=== PATIENT | male | born 1990 | race Caucasian/White ===

== ENCOUNTER 2018-09-26 15:19 | Emergency (ER) | payer OTHER ==
[~2018-09-26] VITALS: Ht 182.9 cm; Wt 97.7 kg
[2018-09-26] MEDS ORDERED: LIDO5DIS41 TOP (15:24)
[2018-09-26] MEDS ORDERED: ADVI100T PO (15:24)
[2018-09-26 17:19] VITALS: BP 165/93
[2018-09-26] MEDS ORDERED: CYCLOBENZAPRINE 10 MG TAB PO ONE (17:30)
[2018-09-26] MEDS ORDERED: NAPR-837 PO (17:31)
[2018-09-26] MEDS ORDERED: CYCL10TA PO (17:31)
--- NOTE | 2018-09-29 12:16 | REP ---
CT of the lumbar spine without IV contrast: Vertebral body heights, interspacing alignment are normal. The facets are normally aligned. There are no vertebral body compression deformities. There are no posterior element fractures. No focal disc protrusions are identified. The facet articulations are unremarkable. There is no spondylolysis or spondylolisthesis. Impression: Negative CT study. The of lumbar spine. Electronically Signed by Saúl Oropeza MD 09/26/2018 04:51 P
== END 2018-09-26 17:48 | disposition home or self-care (01) ==
LOC: M ED 15:19
DX: M54.5 Low back pain (principal); M62.838 Other muscle spasm; Z79.899 Other long term (current) drug therapy; Z88.2 Allergy status to sulfonamides

== ENCOUNTER → 2020-02-26 | Outpatient (CLI) | payer SELFPAY ==
[~2020-02-26] MED LIST: ADVI100T PO; CYCL-707 PO; LIDO5DIS41 TOP; NAPR-837 PO
== END ==
LOC: M LABSMTC 08:46
PROVIDERS: ATTEND Pediatrics
DX: Z20.828 Contact with and (suspected) exposure to other viral communicable diseases (principal)

== ENCOUNTER 2020-10-22 06:57 | Day surgery (SDC) | payer OTHER ==
[~2020-10-22] VITALS: Ht 182.9 cm; Wt 117.0 kg
[~2020-10-22 06:57] MED LIST changes: +CETI-36 PO; +LIDOCAINE 1% SDV 5ML VIAL As Ordered ONE; +LR 1,000 ML IV ONE
[2020-10-22] MEDS ORDERED: LIDOCAINE W/EPINEPHRINE 1% 20ML VIAL As Ordered ONE (08:34)
[2020-10-22] MEDS ORDERED: COCAINE 4% 4ML NASAL SOLUTION BTL As Ordered ONE (08:34)
[2020-10-22] MEDS ORDERED: OXYMETAZOLINE 0.05% NASAL SPRAY (AFRIN) As Ordered ONE (08:34)
[2020-10-22] MEDS ORDERED: METHYLENE BLUE 0.5% (5MG/ML) 10 ML AMP (PROVAYBLUE) As Ordered ONE (08:54)
[2020-10-22] MEDS ORDERED: EPINEPHrine 1MG/ML INJ 30ML MD-VIAL As Ordered ONE (08:54)
[2020-10-22] MEDS ORDERED: MIDAZOLAM INJ 2MG/2ML VIAL (J2250 PER 1MG) As Ordered ONE (08:59)
[2020-10-22] MEDS ORDERED: HYDROmorphone HCL 2 MG/ML 1ML VIAL (J1170) As Ordered ONE (08:59)
[2020-10-22] MEDS ORDERED: propofoL 200 MG/20 ML VIAL As Ordered ONE (08:59)
[2020-10-22] MEDS ORDERED: SUGAMMADEX SODIUM 500 MG/5 ML VIAL (BRIDION) As Ordered ONE (08:59)
[2020-10-22] MEDS ORDERED: LIDOCAINE 2% 100MG/5ML SDV (FOR ANES.) As Ordered ONE (08:59)
[2020-10-22] MEDS ORDERED: dexameTHASONE 4 MG/ML 1ML VIAL (J1100 PER 1MG) As Ordered ONE (08:59)
[2020-10-22] MEDS ORDERED: fentaNYL 100 MCG/2 ML INJECTION (J3010) As Ordered ONE (08:59)
[2020-10-22] MEDS ORDERED: ONDANSETRON 4MG/2ML VIAL As Ordered ONE (08:59)
[2020-10-22] MEDS ORDERED: ROCURONIUM BROMIDE 50 MG/5 ML VIAL As Ordered ONE (08:59)
[2020-10-22] MEDS ORDERED: PERCOCET 5MG/325MG TAB PO PRN (10:15)
[2020-10-22] MEDS ORDERED: LR 1,000 ML IV SCH ×2 (10:15→10:20)
[2020-10-22] MEDS ORDERED: METOCLOPRAMIDE INJ 10MG/2ML VIAL (J2765 PER 1) IV PRN ×2 (10:15→10:20)
[2020-10-22] MEDS ORDERED: ONDANSETRON 4MG/2ML VIAL IV PRN ×2 (10:15→10:20)
[2020-10-22] MEDS ORDERED: fentaNYL 100 MCG/2 ML INJECTION (J3010) IV PRN ×2 (10:15→10:20)
[2020-10-22] MEDS ORDERED: MORPHINE 10 MG/ML 1ML VIAL (J2270) IV PRN (10:20)
[2020-10-22] MEDS ORDERED: ANEXSIA, NORCO 7.5MG/325MG TABLET(HYDROCODONE/APAP) PO PRN (10:20)
[2020-10-22] MEDS: PERCOCET 5MG/325MG TAB PO PRN ×2 (10:21→11:05)
--- NOTE | 2020-10-22 10:27 | ROOPDOC ---
[facility] Report Of Operation Report of Operation DATE OF PROCEDURE: 10/22/20 PREPROCEDURE DIAGNOSES: [Septal deviation, hypertrophic inferior turbinates.]. POSTPROCEDURE DIAGNOSES: [Same]. PROCEDURE PERFORMED: [Septoplasty, bilateral submucous resection of inferior turbinates.]. SURGEON: Candice], OUTREACH AND EDUCATION SOCIAL WORKER: [None], ANESTHESIA: [Gen.]. ESTIMATED BLOOD LOSS: Approximately [60] mL. COMPLICATIONS: [None]. REMARKS: [None]. FINDINGS: SPECIMENS REMOVED: [9] PROCEDURE NOTE: Kirsten is a 29-year-old gentleman who was seen in the office and diagnosed with the above condition. Decision was made in consultation with the patient after explanation of the risks and benefits to undergo the above- named procedure. He was admitted through same day surgery program taken to the operating room and administered a general anesthetic by intravenous injection. He was then intubated endotracheally. Nose is decongested with 4 mL of 4% cocaine solution on nasal pledgets. The patient was draped in usual sterile fashion. Pledgets were removed and the right septum was injected with 1% lidocaine with epinephrine. Using a [place] blade. A right hemitransfixion incision was created. A mucoperichondrial flap was elevated using the [place] elevator. This is extended posteriorly over the perpendicular plate of the ethmoid and vomer. We the bony and cartilaginous septums. We elevated on the opposite side. The deviated portion of bony septum was removed. A small amount of cartilaginous septum was also removed. We elevated on the side of the maxillary crest. This was removed 4 mm osteotome. The flap was then laid back into position in the anterior hemitransfixion incision was closed with interrupted 4-0 chromic suture. The septum was quilted with interrupted 40 plain gut suture. The right inferior turbinate was injected with 1% lidocaine with epinephrine. A [place] blade was used to make a vertical incision. We elevated the mucosa off the turbinate with the [place] elevator. The 2.9 microdebrider blade was used and used to reduce this in the submucosal plane. This was then lateralized with the [place] elevator. The left inferior turbinate was then injected with 1% lidocaine with epinephrine. A vertical incision was made with [place] blade. The [place] elevator is used to elevate the mucosa off the turbinate. The 2.9 mm microdebrider blade was used to reduce this in a submucosal plane. We then lateralized the turbinate with the [place] elevator. Magnetic splints were placed on either side of the septum and secured anteriorly with a 3-0 nylon suture. Slim lines are placed against the inferior turbinates and removed in recovery. A mustache dressing was placed under the nose. Patient was allowed to curve the anesthetic and taken to postanesthesia care in stable condition.]. DESCRIPTION OF PROCEDURE: . Kush Anders MD Oct 22, 2020 10:27
[2020-10-22] MEDS ORDERED: MORPHINE 4 MG/ML 1ML VIAL/SYRINGE (J2270) IV PRN (10:41)
[2020-10-22 11:24] VITALS: BP 128/82
[2020-10-22] MEDS ORDERED: ONDANSETRON 4MG/2ML VIAL IV SCH (13:00)
== END 2020-10-22 12:30 | disposition home or self-care (01) ==
LOC: M SDC 06:57
PROVIDERS: ATTEND Otolaryngology
DX: J34.2 Deviated nasal septum (principal); J34.3 Hypertrophy of nasal turbinates; J30.9 Allergic rhinitis, unspecified; Z88.2 Allergy status to sulfonamides; Z88.8 Allergy status to other drugs, medicaments and biological substances; Z79.899 Other long term (current) drug therapy
CPT/HCPCS: 30140; 30520; C9046; J1100; J1170; J2250; J2270; J2405; J3010; Q9968